=== PATIENT | male | born 1965 | race Caucasian/White ===

== ENCOUNTER 2017-02-26 06:40 | Emergency (ER) | payer BC ==
[~2017-02-26] VITALS: Ht 177.8 cm; Wt 102.1 kg
--- NOTE | 2017-02-26 06:50 | NUR ---
PATIENT WALKED INTO ER C/O LEFT ARM NUMBNESS WITH CP THAT STARTED 20MINS PRIOR TO ARRIVAL. PT IS ALERT, ORIENTED X 3, NO RESP DISTRESS NOTED OR REPORTED UPON ASSESSMENT. PT ACCOMPANIED BY WHO IS AT BEDSIDE... MD AT BEDSIDE...
[2017-02-26] MEDS ORDERED: ASPIRIN 81 MG TAB.CHEW PO ONE (07:00)
[2017-02-26] MEDS ORDERED: IV NORMAL SALINE 1000 ML BAG IV ONE (07:00)
--- NOTE | 2017-02-26 07:00 | NUR ---
MANAGER BIOSTATISTICS AT BEDSIDE FOR CHEST X-RAY....
[2017-02-26] MEDS ORDERED: ASPIRIN 81 MG TAB.CHEW ONE (07:12)
[2017-02-26 07:17] LABS: BASOPHILS # (AUTO) 0.1 K/uL (0.0-8.0); BASOPHILS % (AUTO) 1.2 % (0.0-2.0); EOSINOPHILS # (AUTO) 0.4 K/uL (0.0-0.7); EOSINOPHILS % (AUTO) 4.4 % (0.0-7.0); HEMATOCRIT 49.2 % (40-50); HEMOGLOBIN 16.2 G/DL (14.0-18.0); LYMPHOCYTES # (AUTO) 4.1 K/UL (0.8-4.8); LYMPHOCYTES % (AUTO) 50.9 % (20.5-51.5); MEAN CORPUSCULAR HEMOGLOBIN 27.6 UUG (27.0-31.0); MEAN CORPUSCULAR HGB CONC 33 g/dL (32.0-37.0); MEAN CORPUSCULAR VOLUME 83.6 FL (82.0-92.0); MONOCYTES # (AUTO) 0.4 K/UL (0.1-1.30); NEUTROPHILS # (AUTO) 3.1 K/UL (1.8-8.9); NEUTROPHILS % (AUTO) 38.5 % (38.5-71.5); PLATELET COUNT (AUTO) 165 K/UL (150-450); RED BLOOD CELL COUNT(AUTO) 5.88 MIL/UL (4.7-6.1); WHITE BLOOD COUNT (AUTO) 8.1 K/UL (4.0-11.2)
[2017-02-26 07:32] LABS: BILIRUBIN,DIRECT 0.1 mg/dL (0.0-0.2); BILIRUBIN,TOTAL 0.4 mg/dL (0.2-1.0); CREATININE 1.4 mg/dL (0.6-1.3); POTASSIUM 3.2 mmol/L (3.5-5.1); TOTAL PROTEIN, SERUM 7.2 g/dL (6.4-8.2)
--- NOTE | 2017-02-26 08:27 | NUR ---
Patient discharged to home in stable conditon. Written and verbal after care instructions given. Patient verbalizes understanding of instructions.PT SAYS FEELS BETTER, READY TO GO HOME, PT ACCOMPANIED BY .
[2017-02-26 08:28] VITALS: BP 134/79
== END 2017-02-26 08:32 | disposition home or self-care (01) ==
LOC: ER 06:43
DX: S46.912A Strain of unspecified muscle, fascia and tendon at shoulder and upper arm level, left arm, initial encounter (principal); X58.XXXA Exposure to other specified factors, initial encounter; Y93.89 Activity, other specified; Y92.89 Other specified places as the place of occurrence of the external cause; Y99.8 Other external cause status
CPT/HCPCS: 36415; 70030-TC; 71010; 83690; 85025; 85730; 93005; A4663; J7030